=== PATIENT | female | born 1960 | race Caucasian/White ===

== ENCOUNTER 2017-07-16 05:26 | Day surgery (SDC) | payer BC ==
[~2017-07-16] VITALS: Ht 172.7 cm; Wt 126.1 kg
[2017-07-16 06:11] LABS: HEMATOCRIT 40.8 % (36.0-48.0); MCHC 31.9 g/dL (31.0-37.0); MCV 84.8 fL (80.0-100.0); MEAN PLATELET VOLUME 9.4 fL (7.4-10.4); RBC 4.81 10x6/uL (4.00-5.40); RDW 14.9 % (11.5-14.5); WBC 9.6 10x3/uL (4.8-10.8)
[2017-07-16] MEDS ORDERED: LISINOPRIL5 MG PO (06:12)
[2017-07-16] MEDS ORDERED: PHENERGAN25 M1 PO (06:12)
[2017-07-16] MEDS ORDERED: NEURONTIN 300300 MG PO (06:13)
[2017-07-16] MEDS ORDERED: HUMALOG KWIK INJ 100 (06:13)
[2017-07-16] MEDS ORDERED: PRAVACHOL40 MG PO (06:13)
[2017-07-16] MEDS ORDERED: ULORIC80 MG PO (06:13)
[2017-07-16] MEDS ORDERED: HYDROCODONE-APA1 TAB PO (06:14)
[2017-07-16] MEDS ORDERED: ROBAXIN-750750 MG PO (06:14)
[2017-07-16 06:19] VITALS: BP 118/58; Ht 172.7 cm; Wt 126.1 kg
[2017-07-16 06:52] LABS: ANION GAP 15.5 mmol/L (8-16); CARBON DIOXIDE 24.6 mmol/L (21.0-32.0); CREATININE - SERUM 0.9 mg/dL (0.6-1.3); POTASSIUM - SERUM 4.1 mmol/L (3.5-5.1)
--- NOTE | 2017-07-23 11:32 | OP ---
PATIENT NAME: RACHEL CONTI MEDICAL RECORD: [id number] :60 LOCATION:[facility] ADMISSION DATE: SURGEON: VICKY BROWN DPM DATE OF OPERATION: 07/16/2017 PREOPERATIVE DIAGNOSIS: Mass, left lateral foot. POSTOPERATIVE DIAGNOSIS: Mass, left lateral foot. PROCEDURE: Excision of mass, left lateral foot. ANESTHESIA: Local with IV sedation utilizing lidocaine and Marcaine plain around the surgical site, approximately 17 cc total. HEMOSTASIS: Left ankle tourniquet at 250 mmHg. PATHOLOGY SPECIMENT: Sent for gross and micro identification. PREOPERATIVE DETAILS: The patient was taken to the OR and placed on the operating table in supine position. This was followed by induction of general anesthesia and infiltration of local anesthetic. The left extremity was then prepped and draped in the usual aseptic technique followed by exsanguination and inflation of tourniquet. A 15 blade was used to create a 3.5 to 4 cm linear incision over the dorsal lateral aspect of the left fifth metatarsal extending to the base of the proximal phalanx of the fifth digit. The incision was deepened down through subcutaneous tissue. The mass was then from surrounding soft tissue. It was quite large in size measuring approximately 2.5 cm in diameter. It was excised in total and sent to pathology. The wound was flushed. The subcutaneous tissue was reapproximated with 4-0 Rapide and the skin was closed with 4-0 Rapide in a subcuticular technique followed by Dermabond, Adaptic, 4 x 4, and Conform were used to dress the wound followed by Coban. Tourniquet was deflated. POSTOPERATIVE DETAILS: The patient tolerated the procedure well and left the OR with vital signs stable and vascular status at preoperative levels. The patient was transported to recovery per anesthesia in stable condition. TRANSINT:[id number] Voice Confirmation ID: [id number] DOCUMENT ID: [id number] VICKY BROWN DPM at 1132 CC: [id number] DICTATION DATE: 07/16/17 0809 [employer] SUPERVISOR: 07/16/17 1258 [facility] 07/16/17 [place] [address]
== END 2017-07-16 10:00 | disposition home or self-care (01) ==
LOC: D.OPS 05:26 → D.PAN 07:45 → D.OPS 07:45
PROVIDERS: Anesthesiology
DX: M25.475 Effusion, left foot (principal); Z01.812 Encounter for preprocedural laboratory examination